=== PATIENT | male | born 1965 | race Caucasian/White ===

== ENCOUNTER 2024-05-08 14:08 | Outpatient (AMB) | payer BC, SELFPAY ==
--- NOTE | 2024-05-08 14:09 | A.OFFVIS_ITS ---
Vital Signs 05/08/24 14:17 Height 5 ft 9 in Weight 184 lb 4 oz BMI 27.2 BP 122/82 Blood Pressure Location Lt brachial Position Sitting Respiration 16 Pulse 70 Pulse Source Pulse Oximeter Pulse Oximetry (%) 97 Oxygen Delivery Method Room Air Intake Visit Reasons: Rt hip pain Allergies No Known Allergies Allergy (Verified 05/08/24 14:12) HPI Comments Details: Geovany is very pleasant 58 years old gentleman who presented in my office with complains on pain in the right posterior hip with radiation into the right buttock. He reported that this pain started 12 months ago he does not know the cause of the pain there were no inciting events. He reports today his pain 5/10. 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 He can not sleep normally because of his pain he is tossing and turning. But he can do activities of daily living, he can n take care of himself, he can function normally. He reports that weather changes in movements aggravate his pain and application of the hip makes his pain better. He reports that worse of the pain he feels in the morning and list of the pain he feels during the daytime in terms of tissue damage he reports his pain as dull, sore, hurting, aching, heavy sensation. He tried ibuprofen with little help. He tried aerobic exercises that did not help his pain. His past medical history significant for kidney stones prostate problems and sexual dysfunction. His past surgical history significant for carpal tunnel surgery posttraumatic nerve reattachment on the right hand, right knee arthroscopy for meniscus tear and left inguinal hernia repair. Social history he is working full-time he denies smoking cigarettes he does not drink alcohol he drinks coffee and caffeinated beverages but she denies recreational drugs [facility] Medical History (Updated 05/08/24 @ 14:57 by Suraj Howard MD) Kidney stone Erectile dysfunction Carpal tunnel syndrome of left wrist BPH (benign prostatic hyperplasia) Surgical History (Updated 05/08/24 @ 14:25 by Katt Solis) H/O: knee surgery H/O hernia repair H/O hand surgery Family History (Updated 05/08/24 @ 14:26 by Katt Solis) Mother HTN (hypertension) Father HTN (hypertension) Social History (Updated 05/08/24 @ 14:27 by Katt Solis) Alcohol intake: current Comment: occasional Patient Tobacco Use Status: Never used Tobacco Use of substances other than those prescribed or required for medical reasons: No Review of Systems Const All systems reviewed & are unremarkable except as noted in HPI and below ENT Reports Normal hearing present Neuro Reports Normal hearing present, Denies Abnormal speech present, Denies confusion and Denies Sensory deficit (Neuro) Psych Denies confusion Physical Exam Vital Signs: Last Vital Signs Pulse 70 05/08/24 14:17 Resp 16 05/08/24 14:17 BP 122/82 05/08/24 14:17 Pulse Ox 97 05/08/24 14:17 Oxygen Delivery Method Room Air 05/08/24 14:17 BMI result Body Mass Index 27.2 Const General: no acute distress; No confusion Orientation/consciousness: patient oriented x3 and No confusion Eyes General: appearance normal, both eyes and all related structures Pupils: Equal, round and reactive pupils present EOM: EOMs intact bilaterally Neck Neck: Yes full ROM Chest Chest palpation & inspection: normal inspection of the chest Resp Effort & Inspection: normal respiratory effort, able to speak in complete sentences, normal respiratory pattern, no audible wheezes and no cough Cardio Jugular venous distension: no JVD GI Inspection: Yes normal to inspection Back/Spine/Pelvis Other: SLR is negative bilaterally, patient exhibits normal strength of bilateral lower extremities able to stand on bilateral tiptoes in bilateral heels. Edward test is positive on the right however Gaenslen test and pelvic compression tests are negative. Tenderness on palpation in projection of the right iliac crest. Pain is exacerbated by flexing forward. He denies pain aggravated by coughing and sneezing. Neuro General: patient oriented x3, gait normal and No confusion Cranial nerves: Yes CN's II-XII intact bilaterally, Yes Equal, round and reactive pupils present, Yes Normal hearing present and Yes Ability to bilaterally elevate shoulders present Speech: No Abnormal speech present Gait exam (Neuro): Normal gait present Motor exam (neuro): 5/5 motor strength present throughout Sensory Exam: No Sensory deficit (Neuro) Extrem General: No pedal edema Psych Speech and movement: Normal speech and movement present Affect: normal affect Attitude: cooperative Thought process: Normal thought process present Thought content: Normal thought content present Insight: Good insight present (Psych) Judgement: Good judgement present (Psych) Assessment & Plan Assessment & Plan (1) Mononeuropathy, unspecified: Code(s): G58.9 - Mononeuropathy, unspecified Category: Medical Plan I suspect the pain of this patient is secondary to superior cluneal nerve entrapment. I offered the patient to go for superior cluneal nerve block. I explained to the patient that it might require 9-11 needles to insert through the skin to his iliac crest. I asked him if he wants sedation and he stated that he can not tolerated without sedation. I will schedule him without sedation for this procedure. After the procedure I will see the patient and with positive results we will decide whether or not we will be doing radiofrequency ablation of the cluneal nerves or peripheral nerve stimulation of superior cluneal nerves. Coding Level of Care Code New Pt Level 3 (58904) Diagnoses Mononeuropathy, unspecified G58.9
[2024-05-08 14:17] VITALS: BP 122/82; PULSE 70; RESP 16; O2SAT 97; BMI 27.2
== END 2024-05-08 14:33 | disposition home or self-care (01) ==
PROVIDERS: PCP Internal Medicine; Visit Provider Anesthesiology
DX: G58.9 Mononeuropathy, unspecified (principal)
CPT/HCPCS: 99203

== ENCOUNTER → 2024-05-08 14:08 | Outpatient (BNVA) | payer BC, SELFPAY | PROVIDERS: PCP Internal Medicine; Visit Provider Anesthesiology ==

== ENCOUNTER 2025-07-03 10:23 | Outpatient (AMB) | payer BC, SELFPAY ==
--- NOTE | 2025-07-03 10:30 | A.PHYSOV ---
Vital Signs 07/03/25 10:31 Height 5 ft 10 in Weight 180 lb BMI 25.8 Intake Visit Reasons: Updated referral- back pain w/sciatica Intake Note: Patient is a 60 year old male here for bilateral hip pain. Operational Intelligence Officer Required: No Allergies No Known Allergies Allergy (Verified 07/03/25 10:38) HPI Comments Details: History of Present Illness The patient is a 60 year old male presenting with follow-up for hip pain and evaluation of new-onset low back pain with left-sided sciatica. He reports recent onset of a bulging disc in his back causing sciatica down his left leg, for which another provider started him on a 6-day oral steroid taper. He is on day three of the steroid course and notes it has helped reduce his pain. His history is significant for prior hip injections which provided about one month of relief for left hip pain, while his right hip has felt good since the last injection for bursitis. He recently underwent MRIs of his neck, lower back, and both hips. Results revealed a bulging disc at L4 affecting the left nerve root, normal degeneration and a labral tear in the right hip, and no significant internal derangement of the left hip. Patient is taking prednisone from another pain management office. Patient reports mild relief of his symptoms. They are considering epidural injection if prednisone does not work. The patient reports being tired of taking ibuprofen for pain and notes that other pain pills have not been effective. He is hesitant about surgery, influenced by his brother's experiences with multiple back operations. Pain Description - Location: Low back and left hip, with radiation down the left leg (sciatica). - Quality: Described as excruciating upon standing. - Onset/Timing: Worse in the morning upon waking. - Exacerbating Factors: Inability to perform exercises. - Relieving Factors: Oral steroids have provided some pain reduction, and he sleeps with an ice pack on his side. - Associated symptoms: The pain significantly disrupts sleep, leading to exhaustion. Procedure: Bilateral hip bursal injection 03/18/2025 Results - MRI Lower Back: Revealed a bulging disc at L4 affecting the left L4 nerve root. - MRI Right Hip: Showed normal degenerative changes and a tear at the base of the superior labrum. - MRI Left Hip: No significant internal derangement. [facility] Medical History (Updated 07/03/25 @ 13:21 by DUSTIN Luong) Kidney stone Erectile dysfunction Carpal tunnel syndrome of left wrist BPH (benign prostatic hyperplasia) Surgical History H/O: knee surgery H/O hernia repair H/O hand surgery Family History (Updated 05/08/24 @ 14:26 by Katt Solis) Mother HTN (hypertension) Father HTN (hypertension) Social History Alcohol intake: current Comment: occasional Patient Tobacco Use Status: Never used Tobacco Review of Systems Narrative Review of Systems - Musculoskeletal: Reports low back pain and left hip pain. - Neurological: Reports sciatica radiating down the left leg. - Denies groin pain. - Constitutional: Reports difficulty sleeping due to pain and feeling exhausted. Physical Exam Exam Exam: Physical Exam Lumbar Spine: Examination of his lumbar spine, there is no visible swelling or deformity. He is tender to lower lumbar facets. Full range of motion of the lumbar spine. He does have an increase in pain with facet loading. Special Tests: Lhermittes sign was negative Heel Toe walk is normal Left straight leg raise: Positive left Right straight leg raise: Negative Special tests Sabi test is negative Ganslen's test is negative SI Joint compression test negative Venice test negative Piriformis stretch is negative Lower Extremities: Full range of motion bilateral lower extremities. No calf pain or edema. Neuro: Sensation: Intact to lower extremities bilaterally Strength L2 (Psoas): 5/5 on the left and 5/5 on the right. L3 (Quads): 5/5 on the left and 5/5 on the right. L4 (Ant tibialis): 5/5 on the left and 5/5 on the right. L5 (EHL) 5/5 on the left and 5/5 on the right. S1 (Gastroc): 5/5 on the left and 5/5 on the right. DTR L4: (Patellar) Left 2 Right 2 S1: (Achilles) Left 2 Right 2 Babinski Downgoing No pathologic clonus. No involuntary movement. Vital Signs: BMI result Body Mass Index 25.8 Assessment & Plan Assessment & Plan (1) Lumbar radiculopathy: Code(s): M54.16 - Radiculopathy, lumbar region Category: Medical (2) Lumbar spondylosis: Code(s): M47.816 - Spondylosis without myelopathy or radiculopathy, lumbar region Category: Medical Plan Pain Management - Affect: Patient feels exhausted and is tired of the chronic pain, which impacts his ability to sleep at night. - Analgesia: He is currently on day three of a six-day oral prednisone taper, which has reduced his pain. - He has used ibuprofen frequently in the past and states that other pain pills were not very effective. - Activities of Daily Living: Pain interferes with his sleep, is worst in the morning, and prevents him from doing exercises. - He continues to work. - Aberrant Drug Related Behaviors: None noted. Plan Patient was informed and verbally consented to the use of an ambient scribe for clinic note documentation during this visit. 1. Lumbar Radiculopathy The patient's left-sided symptoms are most likely attributable to radiculopathy from an L4 bulging disc. He is currently on day three of a six-day oral prednisone taper prescribed by an outside provider, which is providing some relief. The plan is to complete the course of oral steroids. If pain returns or remains significant after finishing the prednisone, a left L4 transforaminal epidural steroid injection will be ordered. The risks, benefits, and alternatives of the injection were discussed, and the patient has indicated a preference for receiving the injection with sedation. 2. Labral Tear Of Right Hip The patient's MRI demonstrates a labral tear in the right hip; however, he denies groin pain, a classic symptom of intra-articular hip pathology. 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 No intervention is planned for the hip at this time, and the focus will remain on treating his lumbar spine. 3. Trochanteric Bursitis The patient has a history of bursitis, for which he received a prior injection that provided temporary relief for about a month. Current symptoms are more consistent with lumbar radiculopathy. Further hip-directed treatment will be deferred pending the response to treating his back condition. Discussion Notes I discussed with the patient that his left leg and hip pain are most likely radicular symptoms originating from the bulging disc at L4 in his lumbar spine, rather than from the hip itself. We reviewed his MRI findings, and I explained that the labral tear in his right hip is likely an incidental finding as he denies groin pain, and these are often managed non-surgically. We discussed the a plan to first complete the 6-day course of oral prednisone he was already prescribed. If the pain is not adequately controlled or returns, I will order a left L4 transforaminal epidural steroid injection. I explained the risks of the injection, including infection, bleeding, and nerve damage, noting it is performed under X-ray guidance to minimize these risks. We discussed that he could have the injection awake or with sedation, and he indicated a preference for sedation. I explained that a positive response to the back injection would confirm the source of his leg pain. We discussed long-term options, including the possibility of repeating injections up to three times a year versus eventual surgery if conservative measures fail, noting the patient's desire to avoid surgery. I also advised him to consolidate his care with one provider to ensure continuity and avoid duplicate services. Patient Instructions - Continue to take your oral steroid (prednisone) pills for the full 6-day course as they were prescribed. - If your pain returns after you finish the steroids, please call our office at [phone] to schedule an injection for your lower back. - When you call, please inform the staff that you would prefer to be asleep (with sedation) for the procedure. - The purpose of treating your back is to see if it resolves your left leg pain, which we believe is coming from a pinched nerve in your spine. - Do not worry about the findings in your right hip at this time, as they are not likely causing your current symptoms. - It is recommended to continue your care with one doctor's office to avoid confusion. - You can view these notes and other health information on your patient portal. Coding Level of Care Code Est Pt Level 3 (38933) Diagnoses Lumbar radiculopathy M54.16 Lumbar spondylosis M47.816
[2025-07-03 10:31] VITALS: BMI 25.8
--- OUTSIDE RECORDS SUMMARY | 2025-07-03 11:53 | XMS_ITS | Clinical Summary ---
Author Organization [facility] lin Address [address] [place] [address] Care Team Providers Care Pool Hand Name Role Phone Chon Araya MD Primary Care Provider [phone] Immunizations Immunization Administration Dates Next Due Shingrix Recombinant Dose 08/31/2021,06/17/2021 Social History Tobacco Use Types Packs/Day Years Used Date Smoking Tobacco: Never Assessed Sex and Gender Information Value Date Recorded Sex Assigned at Not on file Legal Sex Male 6:58 AM EST Gender Identity Not on file Sexual Orientation Not on file Plan of Treatment Not on file Medical Devices Not on file Insurance [facility] Care Teams Pool Hand Relationship Specialty Start Date End Date Chon Araya MD [address] [place] [address] PCP - General Internal Medicine 06/17/21
--- OUTSIDE RECORDS SUMMARY | 2025-07-03 11:53 | XMS_ITS | Clinical Summary ---
Author Organization [facility] Address [email or web address] [phone] Phone Care Team Providers Care Teletype Or Varitype Keyboard Operator Name Role Phone Babar Duvall MD Primary Care Provider [phone] Encounters Date Type Department Care Team Description 05/19/2025 Telephone [facility] [address] [place] [address] Yesy Walker CNP Gastric Emptying Study Results 04/30/2025 8:07 AM EDT - 04/30/2025 11:59 PM EDT Hospital Encounter [facility], Nuclear Medicine - [facility] [address] [place] [address] Yesy Walker CNP Discharge Disposition: Home or Self Care 04/14/2025 Transcribe Orders Virtual Department [address] [place] [address] Yesy Walker NP Epigastric pain (Primary Dx) from Last 3 Months Social History Tobacco Use Types Packs/Day Years Used Date Smoking Tobacco: Never Assessed Education Answer Date Recorded Are you interested in more education? Not on lei e 06/10/2024 Are you concerned about learning? Not on file 06/10/2024 No 06/10/2024 No 06/10/2024 Digital Access Answer Date Recorded No 06/10/2024 No 06/10/2024 Reliable internet access at home? Not on file 06/10/2024 Device with a working camera? Not on file Sex and Gender Information Value Date Recorded Sex Assigned at Not on file Legal Sex Male 10:12 AM EST Gender Identity Not on file Sexual Orientation Not on file Plan of Treatment Health Maintenance Due Date Last Done Comments Adult Td,Tdap Booster 1965 LIPID PANEL 1965 DEPRESSION SCREENING 1977 SMOKING Hx and SMOKELESS TOB ACCO SCREENING 1978 HEPATITIS C SCREENING 1983 HIV ONE-TIME SCREENING (18-6 5 YEARS) 1983 COLOGUARD 2010 FIT TEST 2010 FOBT 2010 SIGMOIDOSCOPY 2010 VIRTUAL COLONOSCOPY 2010 PNEUMOCOCCAL VACCINES (50+ y ears) (1 of 1 - PCV) 2015 ZOSTER VACCINES (1 of 2) 2015 INFLUENZA VACCINE (#1) 2025 COVID-19 VACCINE (1 - 2024-2 6 season) 2025 COLONOSCOPY 06/16/2034 04/02/2025 COLORECTAL CANCER SCREENING 06/16/2034 RSV VACCINE (1 - 1-dose 75+ series) 2040 HEPATITIS A VACCINES Aged Out No long er eligible based on patient's age to complete this topic HIB VACCINES Aged Out No longer eligi ble based on patient's age to complete this topic MENINGOCOCCAL VACCINES (ACWY) Aged Out No longer eligible based on patient's age to complete this topic MENINGOCOCCAL VACCINES (B) Aged Out N o longer eligible based on patient's age to complete this topic Medical Devices Not on file Procedures Procedure Name Priority Date/Time Associated Diagnosis Comments NM GASTRIC EMPTYING SOLID PHASE Routine 04/30/2025 2:04 PM EDT Epigastric pain HM COLONOSCOPY FOR RESULT ENTRY ONLY Routine 04/02/2025 from Last 3 Months or Most Recently Relevant to Health Maintenance Results * NM GASTRIC EMPTYING SOLID PHASE (04/30/2025 2:04 PM EDT) Anatomical Region Laterality Modality Abdomen, Pelvis Nuclear Medicine 04/30/2025 2:07 PM EDT Impressions 04/30/2025 2:59 PM EDT Gastric emptying study within normal limits. ATTESTATION: IKristina as teaching physician, have reviewed the images for this case and if necessary edited the report originally created by Getachew Joseph. Narrative 04/30/2025 2:59 PM EDT NM GASTRIC EMPTYING SOLID PHASE Radionuclide gastric emptying scan: COMPARISON: None available TECHNIQUE: A dose of 0.488 mCi technetium 99m sulfur colloid was given orally mixed with a standard meal. Intermittent upright imaging of the abdomen was performed immediately, and at 1 and 2 hours, and at 4 hours if indicated. 100% of the standardized meal was consumed. FINDINGS: Gastric emptying was: 1 hr: 17 % 2 hrs: 69 % 4 hrs: 97 % According to accepted international standards using this technique, median normal values for emptying are: 31% at 1 hr, 76% at 2 hrs, and 99% at 4 hours. 5th percentile values for emptying are: 10% at 1 hr, 40% at 2 hrs, and 90% at 4 hours. These values apply for ingestion of 50% or greater of the standard meal (PMID: 11036479) and approximate the normative emptying values of [employer] (PMID: [id number]). Procedure Note Kristina Dale MD - 04/30/2025 NM GASTRIC EMPTYING SOLID PHASE Radionuclide gastric emptying scan: COMPARISON: None available TECHNIQUE: A dose of 0.488 mCi technetium 99m sulfur colloid was given orally mixedwith a standard meal. Intermittent upright imaging of the abdomen wasperformed immediately, and at 1 and 2 hours, and at 4 hours if indicated.100% of the standardized meal was consumed. FINDINGS: Gastric emptying was: 1 hr: 17 % 2 hrs: 69 % 4 hrs: 97 % According to accepted international standards using this technique, mediannormal values for emptying are: 31% at 1 hr, 76% at 2 hrs, and 99% at 4 hours. 5th percentile values for emptying are: 10% at 1 hr, 40% at 2 hrs, and 90% at 4 hours. These values apply for ingestion of 50% or greater of the standard meal(PMID: 71809209) and approximate the normative emptying values of[employer] (PMID: [id number]). IMPRESSION: Gastric emptying study within normal limits. ATTESTATION: Kristina Barron as teaching physician, have reviewed the imagesfor this case and if necessary edited the report originally created byGeatchew Joseph. Yesy Walker TICKET AGENT IMG NM ABDOMEN Final Res ult * HM COLONOSCOPY FOR RESULT ENTRY ONLY (04/02/2025) Colonoscopy External us Historical Provider MD HEALTH MAINTENANCE Final Result from Last 3 Months or Most Recently Relevant to Health Maintenance Insurance [facility] PPO EPO [facility] PPO EPO [facility] PPO EPO [facility] PPO EPO [facility] PPO EPO [facility] PPO EPO Member Subscriber Plan / Payer (Ef fective 2015-Present) Name:Geovany Garay Relation to Subscriber:Self Name:Geovany Garay Payer ID:[id number] ([facility]) Type:PPO Address: [place] [id number] Care Teams Teletype Or Varitype Keyboard Operator Relationship Specialty Start Date End Date Babar Duvall MD [address] [place] [address] PCP - General Internal Medicine 06/10/24 Additional Source Comments The information contained in this document represents components of the legal health record. It is not the complete legal health record.[facility]
--- OUTSIDE RECORDS SUMMARY | 2025-07-03 11:53 | XMS_ITS ---
Author Name [facility] Organization Unknown History of Medication Use Medication Directions Dispensed Refills Start Date End Date Stat us active Encounters Encounter Type Encounter Reason Primary Diagnosis Location Date Ambulatory [facility] 06/22/2025 Ambulatory [facility] 02/17/2025 Ambulatory [facility] 02/16/2025 Ambulatory [facility] 02/16/2025 Ambulatory [facility] [place] 02/16/2025 Ambulatory [facility] [place] 02/16/2025 Ambulatory [facility] [place] 02/16/2025 Ambulatory [facility] [place] 02/16/2025
--- OUTSIDE RECORDS SUMMARY | 2025-07-03 11:53 | XMS_ITS | Encounter Summary ---
Author Organization [facility] Address [address] [facility] [address] [place] [phone] Phone Care Team Providers Care Personal Lines Underwriter Name Role Phone Babar Duvall MD Primary Care Provider [phone] Encounter Details Date Type Department Care Team (Latest Contact Info) Description 09/24/2024 Transcribe Orders [facility] [place] [address] [phone] Zoie Knapp PA [address] [place] [address] Gastroesophageal reflux disease, unspecified whether esophagitis present (Primary Dx); Abdominal pain, epigastric; Abdominal pain, right upper quadrant Social History Tobacco Use Types Packs/Day Years [...] on file Sexual Orientation Not on file documented as of this encounter Plan of Treatment Not on file documented as of this encounter Results * Lipase (09/24/2024 3:29 PM EDT) LIPASE 19 16 - 63 U/L [facility] Blood 09/24/2024 3:29 PM EDT 09/24/2024 3:33 PM EDT us Zoie CHAN LAB BLOOD BKR ORDERABLES Fi nal Result [address] [address] * Comprehensive metabolic panel (09/24/2024 3:29 PM EDT) SODIUM 139 133 - 146 mmol/L [facility] POTASSIUM 4.4 3.3 - 5.1 mmol/L [facility] CHLORIDE 104 96 - 108 mmol/L [facility] CO2 27 21 - 35 mmol/L [facility] BUN 18 6 - 19 mg/dL [facility] CREATININE 0.90 0.5 - 1.5 mg/dL [facility] GLUCOSE 99 70 - 99 mg/dL [facility] ALBUMIN 4.5 3.9 - 4.8 g/dL [facility] TOTAL PROTEIN 7.4 6.5 - 8.0 g/dL [facility] CALCIUM 9.2 8.4 - 10.3 mg/dL [facility] ALKALINE PHOSPHATASE 56 39 - 117 U/L [facility] TOTAL BILIRUBIN 0.6 0.0 - 1.2 mg/dL [facility] AST 29 0 - 37 U/L [facility] ALT 16 0 - 40 U/L [facility] GLOBULIN 2.9 1 - 4.8 g/dL [facility] EGFR 98 >59 mL/min/1.7 3m2 [facility] Comment:Estimated glomerular filtration rate calculated using the CKD-EPI refit equation. ANION GAP 12 10 - 20 mmol/L [facility] Blood 09/24/2024 3:29 PM EDT 09/24/2024 3:33 PM EDT us Zoie CHAN LAB BLOOD BKR ORDERABLES Fi nal Result [address] [id number] * CBC (09/24/2024 3:29 PM EDT) WBC 5.71 4.00 - 11.00 K/uL [facility] RBC 4.68 4.50 - 5.90 M/uL [facility] HGB 14.1 13.5 - 17.5 g/dL [facility] HCT 42.6 41.0 - 53.0 % [facility] PLT 255 150 - 450 K/uL [facility] MCV 91.0 80.0 - 100.0 fL [facility] MCH 30.1 27.0 - 31.0 pg [facility] MCHC 33.1 32.0 - 36.0 g/dL [facility] RDW 13.0 11.5 - 14.5 % [facility] MPV 10.0 8.4 - 12.0 fL [facility] NRBC 0.00 0.00 /100 WBCs [facility] ABSOLUTE NRBC 0.00 0.00 K/uL [facility] Blood 09/24/2024 3:29 PM EDT 09/24/2024 3:33 PM EDT us Zoie CHAN LAB BLOOD BKR ORDERABLES Fi nal Result [facility] [address] [place] [address] documented in this encounter Visit Diagnoses Diagnosis Gastroesophageal reflux disease, unspecified whether esophagitis present- Primary Abdominal pain, epigastric Abdominal pain, right upper quadrant documented in this encounter Care Teams Personal Lines Underwriter Relationship Specialty Start Date End Date Babar Duvall MD [address] [place] [address] [place] [id number] PCP - General Internal Medicine 06/10/24 documented as of this encounter Additional Source Comments The information contained in this document represents components of the legal health record. It is not the complete legal health record.[facility]
--- OUTSIDE RECORDS SUMMARY | 2025-07-03 11:53 | XMS_ITS | Encounter Summary ---
Author Organization [facility] Address [address] [facility] [address] [place] [address] Phone Care Team Providers Care Front Desk Admin Name Role Phone Babar Duvall MD Primary Care Provider [phone] Reason for Visit * Reason Onset Date Comments Gastric Emptying Study Results 05/19/2025 Encounter Details Date Type Department Care Team (Late st Contact Info) Description 05/19/2025 Telephone [facility] [address] [place], [place] [phone] Yesy [place] CNP [address] [phone] [email or web address] Gastric Emptying Study Results Social History Tobacco Use Types Packs/Day Years [...] on file documented as of this encounter Progress Notes * Yesy [place] CNP - 05/25/2025 2:03 PM EST Please call patient and tell him that his gastric emptying test was completely normal. His stomach is emptying at a normal rate and after 4 hours his stomach was empty of food (and this is normal). Thanks * Emmy Lewis - 05/19/2025 10:44 AM EST Please advise * Johanna Armstrong - 05/19/2025 10:35 AM EST Patient called and requested a call back to go over the the results of his Gastric Emptying Study on 04/30/25. Patient stated if he doesn't answer the phone it is okay to leave a detailed message. Please contact and advise. documented in this encounter Plan of Treatment Not on file documented as of this encounter Visit Diagnoses Not on filedocumented in this encounter Care Teams Front Desk Admin Relationship Specialty Start Date End Date Babar Duvall MD [address] [facility] [address] [place] [address] PCP - General Internal Medicine 06/10/24 documented as of this encounter Additional Source Comments The information contained in this document represents components of the legal health record. It is not the complete legal health record.[facility]
== END 2025-07-03 11:26 | disposition home or self-care (01) ==
LOC: HO.HPHYS 10:24
PROVIDERS: PCP Internal Medicine; Visit Provider Physician Assistant
DX: M54.16 Radiculopathy, lumbar region (principal); M47.816 Spondylosis without myelopathy or radiculopathy, lumbar region
CPT/HCPCS: 99213